=== PATIENT | female | born 1955 | race Caucasian/White ===

== ENCOUNTER 2023-07-22 10:25 | Emergency (ER) | payer OTHER ==
[2023-07-22 10:57] VITALS: BP 129/73; PULSE 72; RESP 16; TEMP 98.6; BMI 17.6
[2023-07-22 11:21] LABS: HEMATOCRIT 41.8 % (32.4-45.2); MCH 29.5 pg (25.7-33.7); MCHC 33.5 g/dl (32.0-36.0); PLATELET COUNT 276.9 10^3/uL (134-434); RBC 4.75 10^6/uL (3.60-5.2); RDW 14.1 % (11.6-15.6); WHITE BLOOD COUNT 5.8 10^3/uL (4.0-10.8)
[2023-07-22 11:25] LABS: INR 1.06 (0.83-1.09); PROTHROMBIN TIME (PATIENT) 12.3 SEC (9.7-13.0)
[2023-07-22 11:36] LABS: ALBUMIN 4.7 g/dl (3.4-5.0); BILIRUBIN,TOTAL 0.7 mg/dl (0.2-1); CALCIUM 9.8 mg/dl (8.5-10.1); POTASSIUM 4.2 mmol/L (3.5-5.1); TOT PROT 7.2 g/dl (6.4-8.2)
[2023-07-22 11:36] LABS: PLATELET ESTIMATE ADEQUATE
== END 2023-07-22 12:10 | disposition home or self-care (01) ==
LOC: FER 10:25
DX: R06.02 Shortness of breath (principal)
CPT/HCPCS: 36415; 71046-TC-FY; 80053; 85027; 85379; 85610; 93005; 99285-25